=== PATIENT | female | born 1965 | race Caucasian/White ===

== ENCOUNTER → 2018-11-07 | Day surgery (SDC) | payer OTHER ==
--- NOTE | 2018-11-06 20:59 | Pre Op History & Physical ---
DATE OF SURGERY: November 07, 2018. CHIEF COMPLAINT: Nasal obstruction and nasal deformity. HISTORY OF PRESENT ILLNESS: This is a 53-year-old female who tripped and hit her face on the floor on October 26, 2018. The patient has no loss of consciousness. The patient has nasal obstruction, worse on the left side and a lot of bleeding from the nose. The patient has deformity from the nose. The patient was in the emergency ER, which worked up including a CT scan of facial bone, which showed that she has a nasal bone fracture. No other facial fracture was noted. REVIEW OF SYSTEMS: Showed no recent cardiovascular, respiratory, or GI problem. PAST MEDICAL HISTORY: The patient has a history of mitral valve prolapse. PAST SURGICAL HISTORY: She has a previous cholecystectomy, hysterectomy, C-spine surgery, and stent in her bile duct. ALLERGIES: SHE HAS NO KNOWN ALLERGIES TO MEDICATIONS. MEDICATIONS: She is on metoclopramide, fluoxetine, atorvastatin, bupropion hydrochloride, vitamin E, and aspirin. SOCIAL HISTORY: She is a nonsmoker and nondrinker. FAMILY HISTORY: Noncontributory. PHYSICAL EXAMINATION: VITAL SIGNS: The patient's vital signs were within normal limits. EARS: Exam showed normal tympanic membranes bilaterally. NOSE: Nasal exam showed deviated nasal septum on the left side about 30% with a reverse C-shaped deformity of the nose. MUSCULOSKELETAL: Show infraorbital, supraorbital, inferior alveolar nerve distribution to be normal. The patient has no tenderness in her malar eminence on both sides and her occlusions were normal. Oropharynx and oral cavity show abrasion in her upper lip. She has 2+ tonsils bilaterally with Mallampati level two. NECK: Exam showed no lymph nodes or thyroid palpable. CHEST: Exam showed good air entry bilaterally. CARDIOVASCULAR: Exam showed S1, S2. No murmur noted. ASSESSMENT AND PLAN: Mrs. 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 The suggested treatment is closed reduction, septoplasty, and other necessary procedure. Complication of the procedure includes, but not limited to bleeding, infection, septal perforation, septal hematoma, CSF leak, blindness, persistent nasal obstruction, persistent nasal crusting, nasal deformity, recurrence of the persistent of the sinus problem. The alternative will be continue observation closed reduction in the office setting. The patient has elected to undergo surgical procedure. MD TERESA Duong/ELAINEL /[id number] cc: Dr. Elena Bateman
[~2018-11-07] MED LIST: ACETAMINOPHEN 1000 MG/100 ML IV ONE; ATORVASTATIN CA20 MG PO; BUPROPION HCL100 MG PO; DESFLURANE 240 ML BTL INH ONE; DEXAMETHASONE SOD PHOS 10 MG/1 ML VIAL ONE; DEXAMETHASONE SOD PHOS INJ 4 MG/ML VIAL ONE; EPHEDRINE SULFATE INJ 50 MG/10 ML SYR ONE; EPINEPHRINE HCL 1:1000 1ML 1 MG/ML AMP ONE; FENTANYL CITRATE/PF 100MCG/2 ML INJ ONE; FLUOXETINE HCL20 MG PO; GLYCOPYRROLATE INJ 1MG/ 5 ML SYR ONE; LIDOCAINE 1% W/EPINEPHRINE 20 ML VIAL ONE; LIDOCAINE HCL 2% JELLY 5 ML TUBE ONE; LIDOCAINE HCL 2% LOCAL INJ 5 ML SDV VIAL INJ ONE; METOCLOPRAMIDE10 MG PO; MIDAZOLAM HCL 2 MG/2 ML VIAL ONE; NEOSTIGMINE 5 MG/5ML SYR ONE; ONDANSETRON HCL INJ 2MG/ML 2ML 2 MG/ML VIAL ONE; PROPOFOL IV EMULSION 10 MG/ML 20 ML VIAL ONE; ROCURONIUM BROMIDE 10 MG/ML 5ML VIAL ONE; VITAMIN E PO
--- OUTSIDE RECORDS SUMMARY | 2018-11-07 09:29 | XMS REPORT | Clinical Summary ---
Author Author [facility] Organization [facility] Address Unknown Phone Unavailable Care Team Providers Care Director Strategic Account Management Name Role Phone Yu Bateman MD PCP Allergies No Known Allergies Medications End Date Status Medication Sig Dispensed Refills Start Date Active VIVELLE-DOT 0.0375 mg/24 0 hr 6 Active aspirin (ECOTRIN) 81 MG Take 81 mg by 0 enteric coated tablet mouth daily. Active lidocaine (LIDODERM) 5 % 0 7 Active acyclovir (ZOVIRAX) 400 Take 400 mg 0 MG tablet by mouth every 4 (four) hours while awake. Active polyethylene glycol 0 (MIRALAX) 17 gram packet 8 Active fluticasone (FLONASE) 50 2 sprays (100 15.8 mL 0 mcg/actuation nasal mcg total) by 8 sprayIndications: Each Nare Bronchitis route daily. Active vitamin E 400 UNIT Take 400 0 capsule Units by mouth 2 (two) times a day. Active baclofen (LIORESAL) 10 MG One po tid 90 tablet 0 tabletIndications: Strain prn muscle 8 of lumbar paraspinous spasms muscle, initial encounter Active FLUoxetine (PROzac) 40 MG TAKE ONE (1) 2 capsule CAPSULE(S) BY 8 MOUTH TWICE A DAY. Active metoclopramide (REGLAN) TAKE ONE (1) 1 10 MG tablet TABLET(S) BY 8 MOUTH IN THE MORNING BEFORE BREAKFAST. Active TRULANCE 3 mg tablet Take 3 mg by 0 mouth daily. 8 Active traMADol (ULTRAM) 50 mg TAKE ONE (1) 0 tablet TABLET(S) BY 8 MOUTH THREE TIMES A DAY NEEDED FOR PAIN. Active atorvastatin (LIPITOR) 20 TAKE ONE (1) 90 tablet 1 MG tablet TABLET(S) BY 8 MOUTH ONCE A DAY. 12/28/2018 Active buPROPion XL (WELLBUTRIN Take 1 tablet 90 tablet 0 XL) 300 MG 24 hr (300 mg 9 tabletIndications: Mild total) by single current episode of mouth daily major depressive disorder for 90 days. (HCC), Anxiety 03/20/2018 Discontinued baclofen (LIORESAL) 10 MG One po tid 90 tablet 0 tablet prn muscle 7 spasms 11/29/2017 FLUoxetine (PROzac) 20 MG Take 1 180 capsule 2 capsule capsule (20 8 mg total) by mouth 2 (two) times a day for 90 days. 05/17/2018 Discontinued LINZESS 290 mcg capsule 0 8 11/15/2017 Discontinued codeine-guaifenesin Take 5 mL by 118 mL 0 (GUAIFENESIN AC) 10-100 mouth 3 8 mg/5 mL (three) times liquidIndications: Viral a day as URI needed for cough for up to 30 days. 11/25/2017 amoxicillin-pot Take 1 tablet 20 tablet 0 clavulanate (AUGMENTIN) by mouth 2 8 875-125 mg per (two) times a tabletIndications: day for 10 Bronchitis days. 11/20/2017 methylPREDNISolone follow 21 tablet 0 (MEDROL, SONIDO,) 4 mg package 8 tabletIndications: directions Bronchitis 12/15/2017 codeine-guaifenesin Take 5 mL by 118 mL 0 (GUAIFENESIN AC) 10-100 mouth 3 8 mg/5 mL (three) times liquidIndications: Viral a day as URI needed for cough for up to 30 days. 11/21/2017 azithromycin (ZITHROMAX) Take 2 6 tablet 0 250 MG tablet tablets the 8 first day, then 1 tablet daily for 4 days. 01/06/2018 Discontinued FLUoxetine (PROzac) 20 MG Take 20 mg by 0 capsule mouth daily. 01/22/2018 FLUoxetine (PROzac) 40 MG Take 1 60 capsule 2 capsuleIndications: capsule (40 8 Anxiety mg total) by mouth 2 (two) times a day for 30 days. 01/22/2018 buPROPion XL (WELLBUTRIN Take 1 tablet 30 tablet 0 XL) 150 MG 24 hr (150 mg 8 tabletIndications: total) by Anxiety mouth daily for 30 days. 01/22/2018 naproxen (NAPROSYN) 500 Take 1 tablet 60 tablet 0 MG tabletIndications: (500 mg 8 Acute midline low back total) by pain without sciatica mouth 2 (two) times a day with meals for 30 days. 07/20/2018 Discontinued atorvastatin (LIPITOR) 20 Take 20 mg by 0 MG tablet mouth daily. Default OP ins 02/06/2018 Discontinued buPROPion XL (WELLBUTRIN Take 1 tablet 30 tablet 0 XL) 150 MG 24 hr tablet (150 mg 8 total) by mouth daily for 30 days. 05/24/2018 Discontinued buPROPion XL (WELLBUTRIN Take 1 tablet 90 tablet 0 XL) 150 MG 24 hr tablet (150 mg 8 total) by mouth daily for 90 days. 06/14/2018 Discontinued FLUoxetine (PROzac) 40 MG TAKE ONE (1) 60 capsule 2 capsule CAPSULE(S) BY 8 MOUTH TWICE A DAY. 09/29/2018 Discontinued buPROPion XL (WELLBUTRIN TAKE ONE (1) 90 tablet 1 XL) 150 MG 24 hr tablet TABLET(S) BY 8 MOUTH DAILY. 09/14/2018 Discontinued FLUoxetine (PROzac) 40 MG TAKE ONE (1) 60 capsule 2 capsule CAPSULE(S) BY 8 MOUTH TWICE A DAY. 06/30/2018 amoxicillin-pot Take 1 tablet 14 tablet 0 clavulanate (AUGMENTIN) by mouth 2 8 875-125 mg per tablet (two) times a day for 7 days. 10/14/2018 FLUoxetine (PROzac) 40 MG TAKE ONE (1) 60 capsule 1 capsule CAPSULE(S) BY 9 MOUTH TWICE A DAY. 10/29/2018 clonAZEPAM (KlonoPIN) 0.5 Take 1 tablet 30 tablet 0 MG tabletIndications: (0.5 mg 9 Mild single current total) by episode of major mouth 2 (two) depressive disorder times a day (HCC), Panic attacks, as needed for Anxiety anxiety for up to 30 days. Status Hospital, Clinic, or Ordered Dose Route Frequency Start End Date Other Facility Date Administered Medication Ended methylPREDNISolone 80 mg IM once 06/23/20 acetate (DEPO-MEDROL) 18 8 injection 80 mgIndications: Acute maxillary sinusitis, recurrence not specified Active Problems Problem Noted Date Acute midline low back pain without sciatica 12/23/2017 Mild single current episode of major depressive disorder 12/23/2017 Hyperinsulinemia 12/14/2016 Glucose intolerance (impaired glucose tolerance) 11/11/2016 Mood changes 11/11/2016 Abnormal weight gain 11/11/2016 Anxiety 11/11/2016 Mixed hyperlipidemia 11/11/2016 Strain of lumbar paraspinal muscle 06/22/2016 Encounters Care Team Description Date Type Specialty Hoda Marroquin MA Weight loss, unintentional 10/10/2018 Orders Only Family Medicine Jane Lew MA 10/09/2018 Telephone Family Medicine Yu Bateman MD Mild single current episode of major depressive disorder (HCC) (Primary Dx); Panic attacks; Anxiety 09/29/2018 Office Visit Internal Medicine Yu Bateman MD 09/14/2018 Refill Family Medicine Yu Bateman MD Weight loss 09/12/2018 Hospital Radiology Encounter Yu Bateman MD Weight loss, unintentional (Primary Dx) 09/12/2018 Orders Only Internal Medicine Yu Bateman MD Mild single current episode of major depressive disorder (HCC) (Primary Dx); Weight loss 09/08/2018 Office Visit Internal Medicine Yu Bateman MD Right upper quadrant abdominal pain (Primary Dx) 08/29/2018 Office Visit Internal Medicine Yu Bateman MD 07/20/2018 Refill Internal Medicine Delvis Lopez FNP Acute maxillary sinusitis, recurrence not specified (Primary Dx) 06/23/2018 Office Visit Family Medicine Yu Bateman MD 06/14/2018 Refill Family Medicine Yu Bateman MD 05/24/2018 Refill Internal Medicine Yu Bateman MD Anxiety (Primary Dx); Hyperglycemia 05/17/2018 Office Visit Internal Medicine Yu Bateman MD Strain of lumbar paraspinous muscle, initial encounter (Primary Dx) 03/20/2018 Orders Only Internal Medicine Yu Bateman MD 03/16/2018 Refill Family Medicine Yu Bateman MD 02/25/2018 Refill Family Medicine Yu Bateman MD Mild single current episode of major depressive disorder (Primary Dx); Anxiety 02/06/2018 Office Visit Internal Medicine Hoda Marroquin MA 01/27/2018 Refill Family Medicine Yu Bateman MD Anxiety (Primary Dx) 01/06/2018 Office Visit Internal Medicine Yu Bateman MD Leukocytosis, unspecified type (Primary Dx) 12/29/2017 Orders Only Internal Medicine Yu Bateman MD 12/29/2017 Telephone Internal Medicine Yu Bateman MD Anxiety (Primary Dx); Acute midline low back pain without sciatica; Mild single current episode of major depressive disorder 12/23/2017 Office Visit Internal Medicine Yu Bateman MD 11/17/2017 Orders Only Internal Medicine Yu Bateman MD Bronchitis (Primary Dx); Viral URI 11/15/2017 Office Visit Internal Medicine after 11/06/2017 Family History Medical History Relation Name Comments Cancer Father Diabetes Father Heart disease Father Rheum arthritis Father Cancer Mother Heart disease Mother Cancer Sister Relation Name Status Comments Father Mother Sister Social History Date Tobacco Use Types Packs/Day Years Used Never Smoker Smokeless Tobacco: Never Used Alcohol Use Drinks/Week oz/Week Comments Defer Sex Assigned at Date Recorded Not on file Industry Job Start Date Occupation Not on file Not on file Not on file Travel End Travel History Travel Start No recent travel history available. Last Filed Vital Signs Time Taken Vital Sign Reading 09/29/2018 3:23 PM INSPECTOR [employer]LOOR [employer]SEM[employer] Blood Pressure 117/80 09/29/2018 3:23 PM INSPECTOR [employer] Pulse 89 09/29/2018 3:23 PM INSPECTOR [employer] Temperature 36.7 C (98.1 F) 12/23/2017 3:59 PM CDT Respiratory Rate 13 09/29/2018 3:23 PM INSPECTOR [employer] Oxygen Saturation 93% - Inhaled Oxygen - Concentration 09/29/2018 3:23 PM INSPECT[employer] Weight 68.9 kg (152 lb) 09/29/2018 3:23 PM INSPECTOR [employer] Height 167.6 cm (5' 6") 09/29/2018 3:23 PM INSPECTOR [employer]OR [employer] Body Mass Index 24.53 Plan of Treatment Care Team Description Date Type Specialty Yu Bateman MD [address] [place] [address] [phone] 11/15/2018 Office Visit Internal Medicine Yu Bateman MD [address] [place] [address] 01/01/2019 Office Visit Internal Medicine Health Maintenance Due Date Last Done Comments CERVICAL CANCER SCREENING 1984 BREAST CANCER SCREENING 2013 COLON CANCER SCREENING 2013 INFLUENZA VACCINE 02/22/2019 05/13/2018 SHINGLES VACCINES Completed 08/19/2018, 06/05/2018 Procedures Comments Procedure Name Priority Date/Time Associated Diagnosis XR CHEST 2 VW Routine 09/12/2018 Weight loss 12:38 PM INSPECTOR [employer] HEMOGLOBIN A1C Routine 05/18/2018 Hyperglycemia 12:00 AM CDT CBC WITH PLATELET AND Routine 12/29/2017 Leukocytosis, unspecified DIFFERENTIAL 3:55 PM CDT type BASIC METABOLIC PANEL Routine 12/23/2017 Anxiety 4:44 PM CDT CBC WITH PLATELET AND Routine 12/23/2017 Anxiety DIFFERENTIAL 4:44 PM CDT THYROID STIMULATING Routine 12/23/2017 Anxiety HORMONE 4:44 PM CDT POC GLUCOSE Routine 12/23/2017 Anxiety 4:36 PM CDT after 11/06/2017 Results * XR Chest 2 Vw (09/12/2018 12:38 PM INSPECTOR [employer]) Narrative Performed At EXAMINATION:XR CHEST 2 VW [facility] CLINICAL HISTORY:R63.4 Abnormal weight loss, weight loss COMPARISON:August 03 2011 IMPRESSION: 1.Lungs are clear and the heart size is normal. 2.The vessels are not congested. There are no pleural effusions. 3.There are postoperative changes in the lower cervical spine. [facility]-[id number] Procedure Note Hm Interface, Radiology Results Incoming - 09/12/2018 1:06 PM INSPECT[employer] EXAMINATION: XR CHEST 2 VW CLINICAL HISTORY: R63.4 Abnormal weight loss, weight loss COMPARISON: August 03 2011 IMPRESSION: 1. Lungs are clear and the heart size is normal. 2. The vessels are not congested. There are no pleural effusions. 3. There are postoperative changes in the lower cervical spine. [facility]-[id number] Performing Organization Address City/[facility]/Zipcode Phone Number [facility] [address] [place] [address] * Hemoglobin A1c (05/18/2018 12:00 AM CDT) Hemoglobin A1C 5.5 <5.7 % of total Hgb [facility] Comment: [place] For the purpose of screening for the presence of diabetes: <5.7% Consistent with the absence of diabetes 5.7-6.4%Consistent with increased risk for diabetes (predi abetes) > or=6.5%Consistent with diabetes This assay result is consistent with a decreased risk of diabetes. Currently, no consensus exists regarding use of hemoglobin A1c for diagnosis of diabetes in children. According to [place] Diabetes Association (ADA) guidelines, hemoglobin A1c <7.0% represents optimal control in non- diabetic patients. Different metrics may apply to specific patient populations. Standards of Medical Care in Diabetes(ADA). Specimen Blood Narrative Performed At FASTING:NO [facility] FASTING: NO Resulting Agency Comment Performing Organization Information: Site ID: [id number] Name: [facility] Address: [address] [place] [id number] Director: Dina Day Performing Organization Address [facility] Vegascode Phone Number Locationary [place] [address] [place], [place] [id number] * CBC with platelet and differential (12/29/2017 3:55 PM CDT) Only the most recent of 2 results within the time period is included. WBC 9.6 3.8 - 10.8 Thousand/uL [facility] [place] RBC 4.58 3.80 - 5.10 Million/uL [facility] [place] HGB 13.4 11.7 - 15.5 g/dL [facility] [place] HCT 40.1 35.0 - 45.0 % [facility] [place] MCV 87.6 80.0 - 100.0 fL [facility] [place] MCH 29.3 27.0 - 33.0 pg [facility] [place] MCHC 33.4 32.0 - 36.0 g/dL [facility] [place] RDW 12.6 11.0 - 15.0 % [facility] [place] Platelet count 255 140 - 400 Thousand/uL [facility] [place] MPV 10.6 7.5 - 12.5 fL [facility] [place] Neutrophils, absolute 5,981 1,500 - 7,800 cells/uL [facility] [place] Lymphocytes, absolute 2,630 850 - 3,900 cells/uL [facility] [place] Monocytes, absolute 826 200 - 950 cells/uL [facility] [place] Eosinophils, absolute 96 15 - 500 cells/uL [facility] [place] Basophils, absolute 67 0 - 200 cells/uL [facility] [place] Neutrophils 62.3 % [facility] [place] Lymphocytes 27.4 % [facility] [place] Monocytes 8.6 % [facility] [place] Eosinophils 1.0 % [facility] [place] Basophils + RC 0.7 % [facility] [place] Specimen Blood Resulting Agency Comment Performing Organization Information: Site ID: [id number] Name: [facility] Address: [address] [place] [id number] Director: Dina Day Performing Organization Address City/[facility] [place]ascod[place] [address] * Thyroid stimulating hormone (12/23/2017 4:44 PM CDT) TSH 3.87 mIU/L [facility] Comment: [place] Reference Range > or=20 Years0.40-4.50 Ranges First trimester0.26-2.66 Second trimester 0.55-2.73 Third trimester0.43-2.91 Specimen Blood Resulting Agency Comment Performing Organization Information: Site ID: [id number] Name: [facility] Address: [address] [place] [phone] Director: Dina Day Performing Organization Address [facility] Vegascode Phone Number Locationary [address] [address] * Basic metabolic panel (12/23/2017 4:44 PM CDT) Glucose 87 65 - 99 mg/dL [facility] Comment: [place] Fasting reference interval BUN, whole blood 16 7 - 25 mg/dL [facility] [place] Creatinine 0.85 0.50 - 1.05 mg/dL [facility] Comment: [place] For patients >49 years of age, the reference limit for Creatinine is approximately 13% higher for people identified as -[place]. EGFR Non-Afr. [place] 78 > OR=60 mL/min/1.73m2 [facility] EGFR 90 > OR=60 mL/min/1.73m2 [facility] [place] BUN/creatinine ratio NOT APPLICABLE 6 - 22 (calc) [facility] Sodium 139 135 - 146 mmol/L [facility] Potassium 4.0 3.5 - 5.3 mmol/L [facility] Chloride 103 98 - 110 mmol/L [facility] CO2 28 20 - 31 mmol/L [facility] Calcium 9.6 8.6 - 10.4 mg/dL [facility] [place] Specimen Blood Resulting Agency Comment Performing Organization Information: Site ID: [id number] Name: [facility] Address: [address] [place] [address] Director: Dina Day Performing Organization Address City/State/Zipcode Phone Number Locationary [place] [address] [place] [address] * POC glucose (12/23/2017 4:36 PM CDT) POC glucose 94 65 - 100 Specimen Blood after 11/06/2017 Insurance Payer Benefit Subscriber ID Type Phone Address Plan / Group AETNA AETNA PPO xxxxxxxxxx PPO OPEN CHOICE Advance Directives Patient has advance care planning documents on file. For more information, charanjit villalta contact: Brandon Washington [address] [place] [address]
--- OUTSIDE RECORDS SUMMARY | 2018-11-07 09:30 | XMS REPORT | Clinical Summary ---
Author Author ONEL [facility] #waywire SellrBuyr Free Class[employer]s [place] [facility] Address Unknown Phone Unavailable Care Team Providers Care Edge Stainer Name Role Phone Yu Bateman MD PCP Allergies No Known Allergies Medications End Date Status Medication Sig Dispensed Refills Start Date Active FLUoxetine (PROZAC) 20 MG Take 40 mg by 0 tablet mouth daily . Active aspirin 81 MG EC tablet Take 81 mg by 0 mouth daily. Active atorvastatin (LIPITOR) 20 Take 20 mg by 0 MG tablet mouth daily. Active vitamin E 400 UNIT Take 800 0 capsule Units by mouth daily. Active buPROPion (WELLBUTRIN SR) Take 150 mg 0 150 MG 12 hr tablet by mouth daily. Active traMADol (ULTRAM) 50 mg Take 50 mg by 0 tablet mouth every 6 (six) hours as needed for Pain. Active metoclopramide HCl Take 10 mg by 0 (REGLAN) 10 MG tablet mouth daily. 06/21/2018 Discontinued esomeprazole (NEXIUM) 40 Take 40 mg by 0 MG capsule mouth daily. 06/21/2018 Discontinued estradiol (VIVELLE-DOT) Place 1 patch 0 0.05 mg/24 hr patch onto the skin twice a week. 06/21/2018 Discontinued dicyclomine (BENTYL) 20 Take 20 mg by 0 mg tablet mouth as needed. Active Problems Problem Noted Date Biliary disease 11/06/2013 Abdominal pain 11/06/2013 Encounters Care Team Description Date Type Specialty Ortega Bowling MD 06/27/2018 Anesthesia Gastroenterology Event Ricardo Rojas MD ERCP,PAPILLOTOMY 06/27/2018 Surgery Gastroenterology Ricardo Rojas MD 06/27/2018 Hospital Gastroenterology [facility] Preadmit Phone 06/21/2018 Hospital Pre-Admission Testing Encounter after 11/06/2017 Family History Medical History Relation Name Comments Stroke Other Heart disease Other Relation Name Status Comments Other Other Social History Date Tobacco Use Types Packs/Day Years Used Never Smoker Smokeless Tobacco: Never Used Alcohol Use Drinks/Week oz/Week Comments Yes 1 Glasses of 0.6 once a week wine Sex Assigned at Date Recorded Not on file Industry Job Start Date Occupation Not on file Not on file Not on file Travel End Travel History Travel Start No recent travel history available. Last Filed Vital Signs Time Taken Vital Sign Reading 06/27/2018 10:25 AM EMAIL DEVELOPER Blood Pressure 112/69 06/27/2018 10:25 AM EMAIL DEVELOPER Pulse 90 06/27/2018 10:25 AM EMAIL DEVELOPER Temperature 36.4 C (97.5 F) 06/27/2018 10:25 AM EMAIL DEVELOPER Respiratory Rate 17 06/27/2018 10:25 AM EMAIL DEVELOPER Oxygen Saturation 97% - Inhaled Oxygen - Concentration 06/27/2018 7:54 AM EMAIL DEVELOPER Weight 69.1 kg (152 lb 4.8 oz) 06/27/2018 7:54 AM EMAIL DEVELOPER Height 167.6 cm (5' 6") 06/27/2018 7:54 AM EMAIL DEVELOPER Body Mass Index 24.58 Plan of Treatment Not on file Implants Device Identifier Shelf Expiration Date Model / Serial / Lot Implanted Type Area Manufactur er 12/27/2020 [id number] / [id number] / [id number] Stent Viabil Bili 10x4 No Hole Stents-Per [employer] & [id number] - [id number] ipheral ASSC:MED Implanted: Qty: 1 on 06/27/2018 by Ricardo Kidd MD Procedures Comments Procedure Name Priority Date/Time Associated Diagnosis REPORT OF PROCEDURE - 06/27/2018 ENDOSCOPY URL 9:05 AM EMAIL DEVELOPER [place] ERCP Routine 06/27/2018 9:00 AM EMAIL DEVELOPER ERCP,BALLOON SWEEPING 06/27/2018 Disorder of bile duct 8:30 AM EMAIL DEVELOPER Special Needs (C-ARM) ERCP,BILIARY STENT 06/27/2018 Disorder of bile duct 8:30 AM EMAIL DEVELOPER Special Needs (C-ARM) PROCEDURE W/ C-ARM 06/27/2018 Disorder of bile duct 8:30 AM EMAIL DEVELOPER Special Needs (C-ARM) ERCP,PAPILLOTOMY 06/27/2018 Disorder of bile duct 8:30 AM EMAIL DEVELOPER Special Needs (C-ARM) after 11/06/2017 Results * REPORT OF PROCEDURE - ENDOSCOPY URL (06/27/2018 9:05 AM EMAIL DEVELOPER) Narrative Performed At * [place] Endoscopic Retrograde Cholangiopancreatography (06/27/2018 9:00 AM EMAIL DEVELOPER) Narrative Performed At FINAL REPORT GE RIS ERCP 7 views 06/27/2018 3:47 PM CLINICAL HISTORY: Instrument localization COMPARISON: None available IMPRESSION: Please correlate imaging report findings with the procedure note prepared by Dr. Rojas, as an intra-procedure imaging consultation was not requested. Reported fluoroscopy time: 1.1 minutes. Signed: Fred Fleming MD Report Verified Date/Time:06/27/2018 15:54:27 Reading Location: [facility] Radiology Reading Room Procedure Note Interface, External Ris In - 06/27/2018 4:01 PM EMAIL DEVELOPER FINAL REPORT ERCP 7 views 06/27/2018 3:47 PM CLINICAL HISTORY: Instrument localization COMPARISON: None available IMPRESSION: Please correlate imaging report findings with the procedure note prepared by Dr. Rojas, as an intra-procedure imaging consultation was not requested. Reported fluoroscopy time: 1.1 minutes. Signed: Fred Fleming MD Report Verified Date/Time: 06/27/2018 15:54:27 Reading Location: [facility] Radiology Reading Room Performing Organization Address City/State/Zipcode Phone Number GE RIS after 11/06/2017 Insurance Payer Benefit Subscriber ID Type Phone Address Plan / Group AETNA - MGD CARE AETNA OPEN xxxxxxxx HMO/POS ACCESS HMO NAP AETNA - MGD CARE AETNA OPEN xxxxxxxxxx HMO/POS ACCESS HMO NAP Advance Directives For more information, please contact: [facility] [address] [place], [place] [phone] Date Inactivated Comments Code Status Date Activated 11/08/2013 12:52 PM All possible means of support, including: cardiac massage, mechanical ventilation, and defibrillation will be used to support life. Code ONE 11/06/2013 4:17 PM
--- OUTSIDE RECORDS SUMMARY | 2018-11-07 09:30 | XMS REPORT ---
Author Author [facility] Address Unknown Phone Unavailable Care Team Providers Care [employer] Name Role Phone Unavailable Unavailable Problems This patient has no known problems. Allergies, Adverse Reactions, Alerts This patient has no known allergies or adverse reactions. Medications This patient has no known medications. Results Test Description Test Time Test Comments Text Results Atomic Results Result Comments [place], ERCP 2018-06-27 15:54:00 Reason for exam:->disorder bile duct,ruq pain FINAL REPORT ERCP 7 views 06/27/2018 3:47 PM CLINICAL HISTORY: Instrument localization COMPARISON: None available IMPRESSION: Please correlate imaging report findings with the procedure note prepared by Dr. Rojas, as an intra-procedure imaging consultation was not requested. Reported fluoroscopy time: 1.1 minutes. Signed: Fred Ibarra Verified Date/Time: 06/27/2018 15:54:27 Reading Location: [facility] Radiology Reading Room
--- NOTE | 2018-11-07 13:29 | Operative Report ---
DATE OF PROCEDURE: 11/07/2018 SURGEON: Jarek Mckeon MD CHIEF COMPLAINT: Nasal obstruction, nasal deformity. POSTOPERATIVE DIAGNOSIS: Nasal obstruction, nasal deformity. OPERATIVE PROCEDURE: Closed reduction, septoplasty. ANESTHESIA: Dr. Lepe. INDICATIONS: This 53-year-old female has presented with a nasal obstruction and nasal deformity after she fell. 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 A CT scan of the facial bones showed the patient has a nasal fracture. It was decided that a closed reduction, septoplasty, and other necessary procedure will be beneficial for her. DESCRIPTION OF PROCEDURE: The patient was taken to operating room, put under general anesthesia, endotracheally intubated. The nose was injected with 1% xylocaine with 1:100,000 epinephrine for hemostasis. Septoplasty was performed. Hemitransfixion incision was done on the left side. Mucoperichondrial flap was elevated on the left. Bony cartilaginous junction was encountered and this was . The perpendicular plate of ethmoid was transected. This was removed along with the vomer. The septal spur collagenous portion removed using a [place] elevator and bony spur using a 4 mm straight chisel. Quadrangular cartilage after being freed from posterior inferior constrain was able to swing back in the midline. The hemitransfixion incision was closed using 4-0 chromic suture in interrupted fashion. The septal whipstitch was done using a 4-0 plain gut suture to reapproximate the mucoperichondrial flap and prevent septal hematoma formation. Thus closed reduction was undertaken. Using the [place] elevator the nose was reduced. Nose was taped and heat sensitive cast applied. The patient tolerated the above procedure well. Estimated blood loss about 20 mL. She was given 20 mg of Decadron intraoperatively. The patient was able to be transferred to recovery room in stable condition. Jarek Mckeon MD DK/MODL /[id number]
[2018-11-07 13:35] VITALS: BP 104/68
== END | disposition home or self-care (01) ==
LOC: OR 09:26
PROVIDERS: ATTEND Otolaryngology Otolaryngology/Facial Plastic Surgery
DX: S02.2XXA Fracture of nasal bones, initial encounter for closed fracture (principal); J34.2 Deviated nasal septum; J34.89 Other specified disorders of nose and nasal sinuses; I34.1 Nonrheumatic mitral (valve) prolapse; F41.9 Anxiety disorder, unspecified; W01.198A Fall on same level from slipping, tripping and stumbling with subsequent striking against other object, initial encounter
CPT/HCPCS: 21320; 30520; 88300; 93005; J0131; J0171; J1100; J2001 ×2; J2250; J2405; J2704; J3490